=== PATIENT | male | born 1990 | race African-American/Black ===

== ENCOUNTER 2016-07-16 22:32 | Emergency (ER) | payer OTHER ==
[~2016-07-16] VITALS: Ht 172.7 cm; Wt 87.7 kg
[2016-07-16 22:34] VITALS: TEMP 36.5; Ht 172.7 cm; Wt 87.7 kg
--- NOTE | 2016-07-16 23:05 | EMERGENCY ROOM VISIT NOTE ---
History First contact with patient: 22:39 Chief Complaint: TESTICULAR PAIN Stated Complaint: TESTICULAR HERNIA Nursing Triage Summary: right sided testicular pain, has had "for a while" but got more severe this afternoon History of Present Illness The patient is a 26 year old male who presents to the Emergency Department by private vehicle for evaluation of his RIGHT-sided inguinal pain. He reports he was diagnosed with a small inguinal hernia a few months ago. Over the last few days he's had increasing pain in the RIGHT groin. He has had radiation to the RIGHT testicle. He denies any recent trauma to the affected area. He reports pain with range of motion activities. He reports the pain radiates down his leg. He denies any numbness or tingling of the distal extremity. He denies any penile discharge or drainage. He reports some possible blood with urination. He denies any abdominal pain or flank pain. He reports no risk for STDs. The patient rates his current discomfort as an 8/10. He's tried nothing [id number] for symptoms. Patient denies any fevers, chills, recent illness, nausea, vomiting, or diarrhea. He denies any previous abdominal surgeries. Review of Systems A complete 10-point Review of Systems was discussed with the patient, with pertinent positives and negatives listed in the History of Present Illness. All remaining Review of Systems questions can be considered negative unless otherwise specified. Social History Smoking Status: Never Smoker Smokeless Tobacco Use: No Marital Status: single Current/Historical Medications Scheduled PRN Hydrocodone/Acetaminophen 5MG/325MG ([place] 5MG/325MG), 1-2 TABLET PO Q4H PRN for Pain Allergies Coded Allergies: No Known Allergies (Unverified , 07/16/16) Physical Exam Vital Signs Date Time Temp Pulse Resp B/P Pulse Ox O2 Delivery O2 Flow Rate FiO2 07/17/16 00:30 72 18 126/65 95 Room Air 07/16/16 22:34 36.5 76 20 125/80 100 Room Air Pain Rating (0-10): 8 Physical Exam VITAL SIGNS - Vital signs and nursing notes were reviewed. GENERAL - 26-year-old Male appearing his stated age who is in no acute distress. Communicates well with provider and answers questions appropriately. ABDOMEN - Abdominal contour flat and without pulsations or visible masses. BS normoactive all four quadrants. No tenderness to palpation appreciated throughout. No palpable masses, hepatosplenomegaly, or ascites noted. GENITOURINARY - palpable lump appreciated to the RIGHT inguinal area. Nonreproducible. Moderately tender to palpation. No warmth to touch. No lymph streaking. Circumcised male without penile lesions or adhesions. No urethral discharge. No testicular tenderness to palpation appreciated bilaterally. No palpable masses. PSYCH - A&Ox3 and cooperates fully with examiner. Pt is very pleasant and interacts well with examiner. Medical Decision & Procedures ER Provider Diagnostic Interpretation: Radiological imaging and reports were reviewed by myself. Radiologist's Interpretation per [facility] as follows: US SCROTAL: No intratesticular mass lesion or torsion. Small complex right hydrocele. Small calcification right scrotum. US OTHER Right groin: Reported fat containing right inguinal hernia Laboratory Results 07/16/16 23:07 Red Blood Count 5.02, Mean Corpuscular Volume 84.5, Mean Corpuscular Hemoglobin 30.9, Mean Corpuscular Hemoglobin Concent 36.6, Mean Platelet Volume 9.1, Neutrophils (%) (Auto) 44.1, Lymphocytes (%) (Auto) 45.1, Monocytes (%) (Auto) 8.2, Eosinophils (%) (Auto) 1.8, Basophils (%) (Auto) 0.6, Neutrophils # (Auto) 3.90, Lymphocytes # (Auto) 3.99, Monocytes # (Auto) 0.73, Eosinophils # (Auto) 0.16, Basophils # (Auto) 0.05 07/16/16 23:07 Test 07/16/16 23:07 07/16/16 23:24 White Blood Count 8.85 K/uL (4.8-10.8) Red Blood Count 5.02 M/uL (4.7-6.1) Hemoglobin 15.5 g/dL (14.0-18.0) Hematocrit 42.4 % (42-52) Mean Corpuscular Volume 84.5 fL (80-100) Mean Corpuscular Hemoglobin 30.9 pg (25-34) Mean Corpuscular Hemoglobin Concent 36.6 g/dl (32-36) Platelet Count 179 K/uL (130-400) Mean Platelet Volume 9.1 fL (7.4-10.4) Neutrophils (%) (Auto) 44.1 % Lymphocytes (%) (Auto) 45.1 % Monocytes (%) (Auto) 8.2 % Eosinophils (%) (Auto) 1.8 % Basophils (%) (Auto) 0.6 % Neutrophils # (Auto) 3.90 K/uL (1.4-6.5) Lymphocytes # (Auto) 3.99 K/uL (1.2-3.4) Monocytes # (Auto) 0.73 K/uL (0.11-0.59) Eosinophils # (Auto) 0.16 K/uL (0-0.5) Basophils # (Auto) 0.05 K/uL (0-0.2) RDW Standard Deviation 39.9 fL (36.4-46.3) RDW Coefficient of Variation 13.1 % (11.5-14.5) Immature Granulocyte % (Auto) 0.2 % Immature Granulocyte # (Auto) 0.02 K/uL (0.00-0.02) Anion Gap 11.0 mmol/L (3-11) Est Creatinine Clear Calc Drug Dose 85.3 ml/min Estimated GFR () 79.2 Estimated GFR (Non- 68.4 BUN/Creatinine Ratio 11.5 (10-20) Calcium Level 8.4 mg/dl (8.5-10.1) Chemistry Specimen Hemolysis Urine Color YELLOW Urine Appearance CLOUDY (CLEAR) Urine pH 6.5 (4.5-7.5) Urine Specific [place] 1.023 (1.000-1.030) Urine Protein NEG (NEG) Urine Glucose (UA) NEG (NEG) Urine Ketones NEG (NEG) Urine Occult Blood NEG (NEG) Urine Nitrite NEG (NEG) Urine Bilirubin NEG (NEG) Urine Urobilinogen NEG (NEG) Urine Leukocyte Esterase SMALL (NEG) Urine WBC (Auto) 10-30 /hpf (0-5) Urine RBC (Auto) 0-4 /hpf (0-4) Urine Hyaline Casts (Auto) 1-5 /lpf (0-5) Urine Epithelial Cells (Auto) 20-30 /lpf (0-5) Urine Bacteria (Auto) NEG (NEG) Medications Administered Medications (Trade) Dose Ordered Sig/Nakul Route Start Time Stop Time Status Last Admin Dose Admin Acetaminophen/ Hydrocodone Bitart ([place] 5/325mg Home Pack) 1 homepack UD ONCE PO 07/17/16 00:45 07/17/16 00:46 DC 07/17/16 00:47 1 [facility] ED Course Patient was seen and evaluated by myself. Previous emergency department visit notes were reviewed. Labs were drawn, saline lock in place. Urinalysis was obtained. Ultrasound of the scrotum and ankle area were obtained. Laboratory results demonstrate no acute leukocytosis, worrisome anemia, or bandemia. The patient has no significant electrolyte abnormalities. Urinalysis does not suggest infection. Ultrasound results above. Laboratory results and imaging studies were reviewed with the patient who acknowledges understanding. The patient was instructed to follow-up with general surgery from today's visit. He was provided [place] for breakthrough pain at home. He was educated on worrisome symptoms for return visit to the emergency department. Patient discharged home afebrile and in good condition. Medical Decision Given the patient's presentation and stated complaints, I did elect to perform the above-mentioned workup. The patient presents today with pain in his RIGHT inguinal area with radiation to the testicle. He has no fever leukocytosis. He does have a palpable inguinal lump. This is mildly tender to palpation. He has no fever leukocytosis. Ultrasound consistent with RIGHT inguinal hernia. The patient was encouraged to follow up closely with Gen. surgery from today's visit. He was educated on worrisome symptoms for return visit to the emergency department. Patient discharged home afebrile and in good condition. In the evaluation and treatment of this patient, the following differential diagnoses were considered: Appendicitis, Diverticulitis, Diverticulosis, Colitis , Ischemic Colitis, Inflammatory Bowel Disease, Irritable Bowel Disease, Testicular Torsion, Kidney Stone, Pyelonephritis, Hydronephrosis, Cholecystitis , Ascending Cholangitis, Choledocholithiasis, GERD. Impression Primary Impression: Right inguinal hernia Additional Impression: Right inguinal pain Departure Information Dispostion Home / Self-Care Condition GOOD Prescriptions Hydrocodone/Acetaminophen 5MG/325MG ([place] 5MG/325MG) Tab 1-2 TABLET PO Q4H Y for Pain, #16 TAB For Initial Treatment Prov: Bruno Ying PA-C 07/17/16 Referrals No Doctor, Assigned (PCP) Oc Rollins D.O. Patient Instructions A Signature Page, ED Hernia Inguinal, [facility] Additional Instructions You have been treated in the Emergency Department your Abdominal Pain - RIGHT Inguinal Hernia. Laboratory results and imaging studies have ruled out any emergent causes for your abdominal pain which would warrant admission or surgery. You have been prescribed [place] to be used for pain control. This is a narcotic medication. You cannot drive or consume alcohol while on this medicine. This medicine should only be used for pain that cannot be controlled with over-the- counter pain medicines. For pain control, you can use the following [id number] medicines (if >12 yo): - Regular strength (325mg/tab) Tylenol (acetaminophen) 2 tabs every 4-6 hours as needed. Do not exceed 12 tablets in a 24 hour period. Avoid taking more than 4 grams (4000 mg) of Tylenol per day. This includes any other sources of acetaminophen you may take on a regular basis. - Regular strength (200 mg/tab) Advil (ibuprofen) 1-2 tabs every 4-6 hours as needed. Do not exceed a dose of 3200 mg per day. Drink plenty of water and stay well hydrated. Please follow-up with general surgery as discussed. Return to the emergency department if your symptoms persist despite treatment plan outlined above or if the following symptoms occur: increased fevers, chills , worsening nausea/vomiting, blood in your stool or urine.
[2016-07-16 23:17] LABS: BASO % 0.6 %; BASO ABS # 0.05 K/uL (0-0.2); COMPLETE YES; EOS % 1.8 %; HEMATOCRIT 42.4 % (42-52); IG% 0.2 %; LYMPH % 45.1 %; LYMPH ABS # 3.99 K/uL (1.2-3.4); MEAN CELL VOLUME 84.5 fL (80-100); MEAN CORPUSCULAR HEMOGLOBIN 30.9 pg (25-34); MEAN CORPUSCULAR HGB CONC 36.6 g/dl (32-36); MEAN PLATELET VOLUME 9.1 fL (7.4-10.4); MONO % 8.2 %; NEUT % 44.1 %; PLATELET COUNT 179 K/uL (130-400); RED BLOOD COUNT 5.02 M/uL (4.7-6.1); WHITE BLOOD COUNT 8.85 K/uL (4.8-10.8)
[2016-07-16 23:36] LABS: URINE APPEARANCE CLOUDY (CLEAR); URINE BILIRUBIN NEG (NEG); URINE COLOR YELLOW; URINE EPITHELIAL CELL AUTO 20-30 /lpf (0-5); URINE NITRITE NEG (NEG); URINE PH 6.5 (4.5-7.5); URINE SPECIFIC GRAVITY 1.023 (1.000-1.030); UROBILINOGEN NEG (NEG); ZZUR CULT IF INDIC CLEAN CATCH YES
[2016-07-16 23:37] LABS: MANUAL MICROSCOPIC REQUIRED? NO; REVIEW REQ? NO
[2016-07-16 23:54] LABS: BUN/CREATININE RATIO 11.5 (10-20); CALCIUM 8.4 mg/dl (8.5-10.1); CREATININE 1.4 mg/dl (0.60-1.40); POTASSIUM 3.5 mmol/L (3.5-5.1)
[2016-07-17 00:30] VITALS: BP 126/65; PULSE 72; O2SAT 95
[2016-07-17] MEDS ORDERED: HYDR-5688 PO (00:41)
[2016-07-17] MEDS ORDERED: NORCO 5/325MG HOME PACK PO ONE (00:45)
--- NOTE | 2016-07-17 06:34 | DIAGNOSTIC IMAGING REPORT ---
ABDOMEN FOR HERNIA CLINICAL HISTORY: Right groin pain. COMPARISON STUDY: No previous studies for comparison. TECHNIQUE: Sonography of the right groin was performed with and without Valsalva. FINDINGS: There is a suspected reducible fat-containing right inguinal hernia. No enlarged inguinal lymph nodes were identified. IMPRESSION: Reducible fat-containing right inguinal hernia. Electronically signed by: Herve Graham M.D. 07/17/2016 6:32 AM Dictated Date/Time: 07/17/2016 6:31 AM
--- NOTE | 2016-07-17 06:38 | DIAGNOSTIC IMAGING REPORT ---
TESTICULAR ULTRASOUND CLINICAL HISTORY: RIGHT testicular discomfort COMPARISON STUDY: None FINDINGS: The right testis measures 41 x 20 x 29 mm. The left testis measures 37 x 20 x 29 mm. There is no evidence of intratesticular mass. There is no evidence of testicular torsion. There is a small right-sided hydrocele. There is a 3 mm right-sided scrotal width. No epididymal masses are visualized. IMPRESSION: 1. No evidence of intratesticular mass 2. No evidence of testicular torsion Electronically signed by: Bhupendra Ocampo M.D. 07/17/2016 6:36 AM Dictated Date/Time: 07/17/2016 6:34 AM
== END 2016-07-17 00:52 | disposition home or self-care (01) ==
LOC: C.EDB 22:33
DX: K40.90 Unilateral inguinal hernia, without obstruction or gangrene, not specified as recurrent (principal); R10.9 Unspecified abdominal pain; N50.811 Right testicular pain